=== PATIENT | female | born 1985 | race Caucasian/White ===

== ENCOUNTER 2020-06-21 07:45 | Outpatient (REF) | payer OTHER, SELFPAY ==
[2020-06-21 08:16] LABS: COVID-19 Test Negative (Negative)
== END 2020-06-21 07:46 | disposition home or self-care (01) ==
LOC: HO.EMPCOV 07:45
PROVIDERS: Visit Provider Internal Medicine
DX: Z20.822 Contact with and (suspected) exposure to COVID-19 (principal)
CPT/HCPCS: 36415; 87635; C9803

== ENCOUNTER 2022-02-09 08:17 | Outpatient (REF) | payer OTHER, SELFPAY ==
[2022-02-09 08:49] LABS: COVID-19 Test Negative (Negative); IDNOW Serial# 16C4AD1C; IDNOW Serial# BCCEAD1C; Influenza A Negative (Negative); Influenza B2 Negative (Negative)
== END 2022-02-09 08:18 | disposition home or self-care (01) ==
LOC: HO.LAB 08:17
PROVIDERS: Visit Provider Internal Medicine
DX: Z20.822 Contact with and (suspected) exposure to COVID-19 (principal)
CPT/HCPCS: 87502; 87635; C9803

== ENCOUNTER 2022-02-12 06:58 | Outpatient (REF) | payer OTHER, SELFPAY ==
[2022-02-12 07:30] LABS: IDNOW Serial# BCCEAD1C; Influenza A Negative (Negative); Influenza B2 Negative (Negative)
[2022-02-12 07:31] LABS: COVID-19 Test Negative (Negative); IDNOW Serial# 16C4AD1C
== END 2022-02-12 06:59 | disposition home or self-care (01) ==
LOC: HO.LAB 06:58
PROVIDERS: Visit Provider Internal Medicine
DX: Z20.822 Contact with and (suspected) exposure to COVID-19 (principal)
CPT/HCPCS: 87502; 87635

== ENCOUNTER 2022-03-23 05:45 | Emergency (ER) | payer OTHER, SELFPAY ==
--- NOTE | ~2022-03-23 | US_ITS ---
EXAMINATION: US ABDOMEN LIMITED CLINICAL INFORMATION: Right upper quadrant pain. Evaluate for a gallstone, kidney stone. COMPARISON: None TECHNIQUE: Real-time imaging of the right upper quadrant abdominal viscera. FINDINGS: PANCREAS: Not well visualized due to overlying bowel gas. LIVER: Unremarkable. The liver is normal in size. The liver contour is normal. Parenchymal echogenicity is normal. No focal hepatic lesion. There is no intrahepatic biliary duct dilatation seen. GALLBLADDER: Layering echogenicity which could indicate gallbladder sludge. No defined stone. No gallbladder wall thickening or pericholecystic free fluid to suggest acute cholecystitis. COMMON BILE DUCT: Normal in caliber measuring 0.2 cm in diameter. RIGHT KIDNEY: Unremarkable. No hydronephrosis. No renal calculi or focal parenchymal lesions. The kidney measures 10.7 cm in maximum dimension. FREE FLUID: None. US/US abdomen limited IMPRESSION: 1. Probable gallbladder sludge without wall thickening or pericholecystic free fluid to suggest acute cholecystitis. 2. No right-sided hydronephrosis or nephrolithiasis. 3. Pancreas not well seen due to overlying bowel gas.
[2022-03-23 05:55] VITALS: BP 153/65; PULSE 94; RESP 18; TEMP 36.4; O2SAT 100; BMI 23.9
[2022-03-23 06:52] LABS: Basophils Percent Auto 0.6 % (0-2); Eosinophils Absolute Auto 0.1 X10*3/uL (0.0-0.4); Eosinophils Percent Auto 1.5 % (0-4); Hematocrit 38.1 % (37.0-47.0); Imm Gran Abs Auto 0.01 X10*3/uL (0.00-0.03); Imm Gran Pct Auto 0.2 % (0.0-0.4); Lymphocytes Absolute Auto 1.2 X10*3/uL (1.2-4.9); Lymphocytes Percent Auto 22.3 % (20-40); MANUAL DIFF FLAG NO; Mean Corpuscular HGB Conc 34.1 g/dl (31.0-35.0); Mean Corpuscular Hemoglobin 30.3 pg (27.0-33.0); Mean Corpuscular Volume 88.8 fL (80.0-98.0); Mean Platelet Volume 8.8 fL (9.4-12.3); Monocytes Absolute Auto 0.6 X10*3/uL (0.1-1.2); Monocytes Percent Auto 11.1 % (2-11); Neutrophils Absolute Auto 3.4 x10*3/uL (2.0-8.3); Neutrophils Percent Auto 64.3 % (45-73); Platelet Count 310 X10*3/uL (160-400); Red Blood Count 4.29 X10*6/uL (4.20-5.50); Red Cell Distribution Width 13.6 % (11.0-16.0); White Blood Count 5.2 X10*3/uL (4.8-10.8)
[2022-03-23 07:07] LABS: Alanine Aminotransferase 6 U/L (0-31); Albumin Level 4.4 g/dL (3.5-5.0); Alkaline Phosphatase 51 U/L (39-117); Anion Gap 14 (12-20); Aspartate Amino Transferase 18 U/L (5-31); Bilirubin Total 0.5 mg/dL (0.0-1.0); Blood Urea Nitrogen 14 mg/dL (9-16); Calcium 9.5 mg/dL (8.4-10.2); Carbon Dioxide 23 mmol/L (22-29); Chloride 106 mmol/L (96-108); Creatinine Clr Calc Pharmacy 84.9; Estimated Glomerular Filt Rate > 60; Glucose Random 102 mg/dL (60-115); Lipase 17 U/L (8-78); Sodium 139 mmol/L (135-145); Total Protein 6.9 g/dL (6.5-8.0)
--- NOTE | 2022-03-23 07:16 | ED_ITS ---
HPI - Abdominal Pain General Chief Complaint: Abdominal Pain Stated Complaint: abd pain Time Seen by Provider: 03/23/22 06:36 Source: patient Mode of arrival: ambulatory History of Present Illness HPI narrative: 36-year-old female presents with vague epigastric discomfort since yesterday that she describes as squeezing in nature and constant without radiation. She denies any associated nausea, vomiting, fever, chills but does state after she ate dinner last night it began to extend over into the right upper quadrant area. Patient reports a history of renal colic and but otherwise has no intra-abdominal surgery history. Patient has continued to pass flatus and denies dysuria at this time. Of note, she has been taking NSAIDs since pulling a muscle last week at the gym. Related Data Previous Rx's Medication Instructions Recorded sucralfate 100 mg/mL oral 10 ml PO BID #420 mL 03/23/22 suspension (Carafate) Allergies Allergy/AdvReac Type Severity Reaction Status Date / Time amoxicillin [AMOXICILLIN] Allergy Unknown HIVES Unverified 10/28/19 19:51 codeine [CODEINE] Allergy Unknown HIVES Unverified 10/28/19 19:51 Review of Systems Review of Systems Pertinent positives and negatives as stated in HPI PMFSH Past Medical History Source: nursing notes reviewed Social History Social History Alcohol intake: current Alcohol intake frequency: a few times a week Smoked in Last 30 Days: No Use of substances other than those prescribed or required for medical reasons: Yes Substance Use Type: Marijuana Advance Directives: No Advance Directives Information Provided: Yes Patient : No Physical Exam ED Vital Signs: Vital Signs - 24 hr 03/23/22 05:55 03/23/22 08:17 Temperature 97.6 F 97.7 F Pulse Rate 94 67 Respiratory Rate 18 17 Blood Pressure 153/65 H 116/76 Pulse Oximetry 100 99 Oxygen Delivery Method Room Air Room Air BMI result Body Mass Index 23.9 VITAL SIGNS: Reviewed. GENERAL: Well developed, well nourished, in no acute distress. HEAD: Normocephalic/atraumatic EYES: PERRLA, EOMI EARS: Ext canals without abnormality LUNGS: Normal breath sounds. No adventitious sounds or accessory muscle use. SpO 2<100> CARDIOVASCULAR: Regular rate and rhythm without noted murmurs ABDOMEN: Soft, discomfort on palpation over the right upper quadrant/epigastric without rebound, Rae's is negative, non-distended with bowel sounds. MUSCULOSKELETAL: No tenderness, deformities, or effusions noted on gross inspe ction. EXTREMITIES: No cyanosis, clubbing or edema. SKIN: Inspection of the skin reveals no rashes NEUROLOGIC: Alert and oriented x 4. Strength and sensation to light touch were grossly intact x 4. Medical Decision Making Medical Decision Making [facility] Narrative: 0748: 36-year-old female with epigastric/right upper quadrant pain. I reviewed all investigations and my interpretation is that patient likely has gastritis with possible developing ulcer secondary to the overuse of NSAIDs as there is no evidence to suggest acute cholecystitis, pancreatitis, renal colic. Urinalysis is also negative. All results discussed with patient at bedside and on re-evaluation she has had some improvement of her discomfort with the GI cocktail but still has some residual right epigastric discomfort and will receive Carafate. She is otherwise discharged home in stable condition. She will also get a referral to follow-up with surgery regarding her cholelithiasis. Differential Diagnosis Differential Diagnoses: The differential diagnosis associated with the presentation includes Please see the discussion above Lab Data [facility] Lab Attestation statement: I reviewed the patient's lab results. Please see the discussion above 03/23/22 06:45 03/23/22 06:45 Labs: Lab Results 03/23/22 03/23/22 03/23/22 Range/Units 06:45 06:45 07:25 WBC 5.2 (4.8-10.8) X10*3/uL RBC 4.29 (4.20-5.50) X10*6/uL Hgb 13.0 (12.0-16.0) g/dl Hct 38.1 (37.0-47.0) % MCV 88.8 (80.0-98.0) fL MCH 30.3 (27.0-33.0) pg MCHC 34.1 (31.0-35.0) g/dl RDW 13.6 (11.0-16.0) % Plt Count 310 (160-400) X10*3/uL MPV 8.8 L (9.4-12.3) fL Immature Gran % (Auto) 0.2 (0.0-0.4) % Neut % (Auto) 64.3 (45-73) % Lymph % (Auto) 22.3 (20-40) % [place] % (Auto) 11.1 H (2-11) % Eos % (Auto) 1.5 (0-4) % Baso % (Auto) 0.6 (0-2) % Lymph # (Auto) 1.2 (1.2-4.9) X10*3/uL [place] # (Auto) 0.6 (0.1-1.2) X10*3/uL Eos # (Auto) 0.1 (0.0-0.4) X10*3/uL Baso # (Auto) 0.0 (0.0-0.2) X10*3/uL Abs Immat Gran (auto) 0.01 (0.00-0.03) X10*3/uL Absolute Neuts (auto) 3.4 (2.0-8.3) x10*3/uL Absolute Nucleated RBC 0.000 (0.0-0.012) X10*3/uL Nucleated RBC % (auto) 0.0 (0.0-0.2) /100WBC Sodium 139 (135-145) mmol/L Potassium 4.0 (3.3-5.1) mmol/L Chloride 106 (96-108) mmol/L Carbon Dioxide 23 (22-29) mmol/L Anion Gap 14 (12-20) BUN 14 (9-16) mg/dL Creatinine 0.75 (0.5-1.4) mg/dL Estim Creat Clear Calc 84.9 Estimated GFR > 60 Random Glucose 102 (60-115) mg/dL Calcium 9.5 (8.4-10.2) mg/dL Total Bilirubin 0.5 (0.0-1.0) mg/dL AST 18 (5-31) U/L ALT 6 (0-31) U/L Alkaline Phosphatase 51 (39-117) U/L Total Protein 6.9 (6.5-8.0) g/dL Albumin 4.4 (3.5-5.0) g/dL Lipase 17 (8-78) U/L Urine Color Yellow Urine Appearance Clear Urine pH 7.0 (5.0-9.0) Ur Specific [place] <= 1.005 (1.005-1.025) Urine Protein Negative (Neg-Trace) mg/dL Urine Glucose (UA) Negative (Negative) mg/dL Urine Ketones Negative (Negative) mg/dL Urine Blood Negative (Negative) Urine Nitrite Negative (Negative) Ur Leukocyte Esterase Trace H (Negative) Urine RBC 0-2 (0-2) /HPF Urine WBC 0-5 (0-5) /HPF Ur Squamous Epith Cells 6-10 (0-2) /HPF Urine Bacteria Trace (None Seen) Hyaline Casts 0-2 (0-2) /LPF Urine Test (NEGATIVE) 03/23/22 Range/Units 07:25 WBC (4.8-10.8) X10*3/uL RBC (4.20-5.50) X10*6/uL Hgb (12.0-16.0) g/dl Hct (37.0-47.0) % MCV (80.0-98.0) fL MCH (27.0-33.0) pg MCHC (31.0-35.0) g/dl RDW (11.0-16.0) % Plt Count (160-400) X10*3/uL MPV (9.4-12.3) fL Immature Gran % (Auto) (0.0-0.4) % Neut % (Auto) (45-73) % Lymph % (Auto) (20-40) % [place] % (Auto) (2-11) % Eos % (Auto) (0-4) % Baso % (Auto) (0-2) % Lymph # (Auto) (1.2-4.9) X10*3/uL [place] # (Auto) (0.1-1.2) X10*3/uL Eos # (Auto) (0.0-0.4) X10*3/uL Baso # (Auto) (0.0-0.2) X10*3/uL Abs Immat Gran (auto) (0.00-0.03) X10*3/uL Absolute Neuts (auto) (2.0-8.3) x10*3/uL Absolute Nucleated RBC (0.0-0.012) X10*3/uL Nucleated RBC % (auto) (0.0-0.2) /100WBC Sodium (135-145) mmol/L Potassium (3.3-5.1) mmol/L Chloride (96-108) mmol/L Carbon Dioxide (22-29) mmol/L Anion Gap (12-20) BUN (9-16) mg/dL Creatinine (0.5-1.4) mg/dL Estim Creat Clear Calc Estimated GFR Random Glucose (60-115) mg/dL Calcium (8.4-10.2) mg/dL Total Bilirubin (0.0-1.0) mg/dL AST (5-31) U/L ALT (0-31) U/L Alkaline Phosphatase (39-117) U/L Total Protein (6.5-8.0) g/dL Albumin (3.5-5.0) g/dL Lipase (8-78) U/L Urine Color Urine Appearance Urine pH (5.0-9.0) Ur Specific [place] (1.005-1.025) Urine Protein (Neg-Trace) mg/dL Urine Glucose (UA) (Negative) mg/dL Urine Ketones (Negative) mg/dL Urine Blood (Negative) Urine Nitrite (Negative) Ur Leukocyte Esterase (Negative) Urine RBC (0-2) /HPF Urine WBC (0-5) /HPF Ur Squamous Epith Cells (0-2) /HPF Urine Bacteria (None Seen) Hyaline Casts (0-2) /LPF Urine Test NEGATIVE (NEGATIVE) Radiology Impression Radiologist Impression: My interpretation is in agreement with radiology's impression of the imaging study. Medications Administered Discontinued Medications Generic Name Dose Route Start Last Admin Trade Name Freq PRN Reason Stop Dose Admin Al Hydroxide/Mg Hydroxide 30 ml 03/23/22 07:16 03/23/22 07:28 Magnesium Hydrox/Alum Hydrox 30 Ml Oral.Susp PO 03/23/22 07:17 30 ml ONCE ONE Administration Lidocaine HCl 10 ml 03/23/22 07:16 03/23/22 07:28 Lidocaine Hcl Viscous 2 % 15 Ml Solution MUCOUS MEM 03/23/22 07:17 10 ml ONCE ONE Administration Discharge Plan Discharge Clinical Impression: Gastritis Patient Disposition: Home, Self-Care Instructions: Gastritis (ED), Diet for Stomach Ulcers and Gastritis (ED) Additional Instructions: 1. You are being sent home with a prescription for Carafate which should be used twice a day for 4 days. Please drink plenty of water as this medication can lead to constipation. Stop using all NSAIDs at this time. 2. You have also been given a referral to follow-up with general surgery regar ding a gallbladder. Return to the ER for worsening symptoms. Prescriptions: New sucralfate [Carafate] 100 mg/mL suspension 10 ml PO BID Qty: 420 0RF Referrals: Rosalva Kunz MD [Physician] - (Gallbladder sludge without evidence of acute cholecystitis.)
[2022-03-23] MEDS: Magnesium Hydrox/Alum Hydrox 30 ML ORAL.SUSP PO (07:28)
[2022-03-23] MEDS: Lidocaine HCl Viscous 2 % 15 ML SOLUTION 10 ML MUCOUS MEM (07:28)
--- NOTE | 2022-03-23 07:34 | PC.NURSE ---
PT LAYING ON STRETCHER, APPEARS UNCOMFORTABLE. AWARE OF PLAN. WAITING FOR [facility] GI COCKTAIL GIVEN ORDERED
[2022-03-23 07:41] LABS: Appearance Urine Clear; Color Urine Yellow; Glucose Urine UA Negative (Negative); Leukocyte Esterase Urine Trace (Negative); Nitrite Urine Negative (Negative); Specific Gravity - Urine <= 1.005 (1.005-1.025); UMIC TRIGGER UACC YES; Urine Blood Negative (Negative); Urine Ketones Negative (Negative); Urine Protein Negative (Neg-Trace)
[2022-03-23 07:42] LABS: UPreg QC Valid YES; Urine Pregnancy NEGATIVE (NEGATIVE)
[2022-03-23 07:46] LABS: Bacteria Urine Trace (None Seen); Hyaline Casts Urine 0-2 /LPF (0-2); RBC Urine 0-2 /HPF (0-2); WBC Urine 0-5 /HPF (0-5)
[2022-03-23 08:17] VITALS: BP 116/76; PULSE 67; RESP 17; TEMP 36.5; O2SAT 99
[2022-03-23 09:32] VITALS: BP 125/90; PULSE 91; RESP 18; TEMP 36.3; O2SAT 99
--- NOTE | 2022-03-23 09:38 | PC.NURSE ---
patient a&ox3, c/o 07/20 pain, vss, provider in speaking with patient, call laird within reach, will continue to monitor.
[2022-03-23] MEDS: Sucralfate Oral Suspension 1 GM/10 ML ORAL.SUSP PO (09:43)
== END 2022-03-23 09:48 | disposition home or self-care (01) ==
PROVIDERS: Emergency Provider Student in an Organized Health Care Education/Training Program
DX: K29.70 Gastritis, unspecified, without bleeding (principal); R10.9 Unspecified abdominal pain; Z79.899 Other long term (current) drug therapy; F12.90 Cannabis use, unspecified, uncomplicated
CPT/HCPCS: 36415; 76705; 80053; 81001; 81025; 83690; 85025; 99284

== ENCOUNTER 2024-05-03 08:29 | Outpatient (REF) | payer OTHER, SELFPAY | END 2024-05-03 08:30 | disposition home or self-care (01) | LOC: HO.HOSX 08:29 | PROVIDERS: Visit Provider Physician Assistant | DX: Z13.89 Encounter for screening for other disorder (principal) ==